=== PATIENT | male | born 1975 | race Caucasian/White ===

== ENCOUNTER 2018-04-28 21:47 | Outpatient (REF) | payer BC, SELFPAY ==
[2018-04-28 22:49] LABS: Anion Gap 8.6 mmol/L (3-11); BUN 12 mg/dL (7-18); CO2 27.4 mmol/L (21.0-32.0); CREATININE 0.62 mg/dL (0.70-1.30); Calcium 8.7 mg/dL (8.5-10.1); Chloride 105 mmol/L (98-107); Cholesterol 185 mg/dL (50-200); Glucose 94 mg/dL (70-100); HDL Cholesterol 62 mg/dL (40-60); LDL CHOLESTEROL 108 mg/dL (<100); Sodium 141 mmol/L (136-145); Triglyceride 43 mg/dL (30-150)
[2018-05-02 09:47] LABS: PSA, Screening 0.2 ng/ml (0-2.5)
== END 2018-04-28 22:07 ==
LOC: NCHCN 21:47
PROVIDERS: PCP Family Medicine; Visit Provider Specialist/Technologist Athletic Trainer
DX: Z12.5 Encounter for screening for malignant neoplasm of prostate (principal); Z00.00 Encounter for general adult medical examination without abnormal findings; Z13.220 Encounter for screening for lipoid disorders; Z13.228 Encounter for screening for other metabolic disorders
CPT/HCPCS: 80048; 80061; 83721; 84153

== ENCOUNTER 2019-06-09 07:02 | Outpatient (CLI) | payer BC, SELFPAY ==
[2019-06-09 08:29] LABS: Anion Gap 7.2 mmol/L (3-11); BUN 12 mg/dL (7-18); CO2 27.8 mmol/L (21.0-32.0); CREATININE 0.61 mg/dL (0.70-1.30); Calcium 8.7 mg/dL (8.5-10.1); Calculated LDL 124 mg/dL (<100); Chloride 107 mmol/L (98-107); Cholesterol 177 mg/dL (<200); Glucose 98 mg/dL (74-106); HDL Cholesterol 41 mg/dL (40-60); Potassium 4.3 mmol/L (3.5-5.1); Sodium 142 mmol/L (136-145); Triglyceride 60 mg/dL (<150)
== END 2019-06-09 07:22 ==
PROVIDERS: PCP Family Medicine; Visit Provider Nurse Practitioner Family
DX: Z00.00 Encounter for general adult medical examination without abnormal findings (principal); Z13.228 Encounter for screening for other metabolic disorders; Z13.220 Encounter for screening for lipoid disorders
CPT/HCPCS: 36415; 80048; 80061

== ENCOUNTER 2022-07-03 15:05 | Outpatient (REF) | payer BC, SELFPAY ==
[2022-07-03 15:43] LABS: ALT 55 U/L (16-63); AST 20 U/L (15-37); Albumin 3.7 g/dL (3.4-5.0); Alkaline Phosphatase 46 U/L (46-116); Anion Gap 5.9 mmol/L (3-11); BUN 13 mg/dL (7-18); Bilirubin, Total 0.2 mg/dL (0.2-1.0); CO2 30.1 mmol/L (21.0-32.0); CREATININE 0.6 mg/dL (0.70-1.30); Calcium 8.9 mg/dL (8.5-10.1); Calculated LDL 140 mg/dL (<100); Chloride 106 mmol/L (98-107); Cholesterol 229 mg/dL (<200); Estimated GFR 119.82 (mL/min/1.73m2); Glucose 108 mg/dL (74-106); HDL Cholesterol 64 mg/dL (40-60); Potassium 4.2 mmol/L (3.5-5.1); Sodium 142 mmol/L (136-145); Triglyceride 129 mg/dL (<150)
[2022-07-03 15:53] LABS: Hemoglobin A1C 5.3 % (<5.7)
[2022-07-03 23:16] LABS: PSA, Screening 0.3 ng/mL (<=2.5)
== END 2022-07-03 15:06 | disposition home or self-care (01) ==
LOC: NCHCN 15:05
PROVIDERS: PCP Family Medicine; Visit Provider Nurse Practitioner Family
DX: Z00.00 Encounter for general adult medical examination without abnormal findings (principal); E66.9 Obesity, unspecified; Z13.1 Encounter for screening for diabetes mellitus; Z13.220 Encounter for screening for lipoid disorders; Z12.5 Encounter for screening for malignant neoplasm of prostate
CPT/HCPCS: 80053; 80061; 84153; 83036

== ENCOUNTER 2022-07-17 08:05 | Day surgery (SDC) | payer BC, SELFPAY ==
--- NOTE | 2022-07-16 20:15 | PDOC.DSDIS_ITS ---
Date of service: 07/17/22 Time of Service: 10:00 Discharge Plan Disposition Patient Disposition: Home Condition: Good Discharge Details Reason For Visit: Colon scope/colon cancer screening Attending Provider: Anna Medellin Primary Care Provider: Rosalina Escamilla V Home Meds and New Rx's Prescriptions: Continued sildenafil (pulm.hypertension) 20 mg tablet 20 mg PO DAILY Rx Instructions: administer doses at least 4-6 hours apart Discontinued polyethylene glycol 3350 17 gram/dose powder 238 g PO ONCE Qty: 238 0RF Rx Instructions: take per colonoscopy instructions bisacodyl [Dulcolax (bisacodyl)] 5 mg tablet,delayed release (DR/EC) 5 mg PO ONCE Qty: 4 0RF Rx Instructions: take per colonoscopy instructions Discharge Instructions Additional Instructions: DSU Colonoscopy Post- Op Instructions Instructions for Everyone who is given Anesthesia: For your safety, please do the following for the next twenty-four (24) hours: *Do Not operate a motor vehicle (car, truck, motorcycle, etc.) *Do Not drink alcoholic beverages or use any recreational drugs for the first 24 hours or while taking pain medications. The medications in your body may have a reaction that can be dangerous. *Do Not make any important decisions or sign any important papers. Findings: Normal Follow up: repeat in 10 years time 1. No lifting over 20 pounds or strenuous activity for the first 24 hours after your procedure. After 24 hours there are no restrictions on your activity but you may feel fatigued for a few days. 2. After you arrive home you may have a light meal and return to your normal diet as you can tolerate it without feeling sick to your stomach. 3. You may have a bloated, gaseous feeling in your belly (abdomen) after a colonoscopy. Passing gas and belching will help. Walking or lying down on your left side with your knees flexed may relieve the discomfort. Call the office at [phone] (Office) or [phone] (Hospital) right away if you notice any of the following: a.Vomiting of blood or ?coffee ground stools?. b.Rectal bleeding 1Tbsp, blood clots or continuous bleeding. c.Severe belly (abdominal) pain. d.A hard distended belly (abdomen) and an inability to pass gas. 4. Please don?t expect to have a normal BM (bowel movement) for 2-3 days after your procedure. 5. If there are questions regarding the findings of your procedure, please contact your doctor 6. If you are unable to contact your doctor with a problem, contact the hospital at [phone]. 7. Continue all your regular medications unless directed otherwise. I understand the above instructions and have no questions. Signature of Patient or Adult Escort Name of Responsible Adult Escort Signature of Nurse Date/Time Activity:: See above Diet:: See above Discharge Orders Discharge Orders: Discharge Order (Routine); Ordered 07/17/22 Ordered By: Anna Medellin
[2022-07-17 08:15] VITALS: BP 122/82; PULSE 71; RESP 18; TEMP 36.5; O2SAT 98
[2022-07-17] MEDS: Lactated Ringers 1,000 ML 80 ML IV (08:39)
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
[2022-07-17 09:02] VITALS: BMI 36.6
[2022-07-17 10:00] VITALS: BP 111/77; PULSE 71; RESP 18; TEMP 36.2; O2SAT 97
--- NOTE | 2022-07-17 10:01 | W.COLOREPORT ---
Date of service: 07/17/22 Time of Service: 10:01 Colonoscopy Report Date of procedure: 07/17/22 Pre-op diagnosis general: CRC screening Post-op diagnosis procedure note: same Surgeon: Anna Medellin Anesthesia Type: General:No Airway Estimated blood loss (mL): 13 Pathology: none sent Complications: None Disposition: same day Prep: Miralax/Dulcolax Retraction Time: 14 Procedure Description: After informed consent was obtained the patient was taken to the procedure room and placed in a left decubitous position. Monitors were applied and a time out was done. The patients name, date of , procedure, allergies to medications and metal in their body was reviewed. The patient was then sedated. Once sedated and comfortable a rectal exam was done. External exam was normal. Internal exam revealed a normal sphincter tone and no palpable masses. The scope was then introduced and retrofelexed. No without internal hemorrhoids were identified. The scope was then advanced to the cecum difficulty. The TI and appendiceal orifice were identified. The prep was BBPS 2 in all segments for total of 6. The scope was then slowly retracted over 14 minutes back into the rectum. No polyps, AVMs, diverticula are visualized. The mucosa is pink and healthy with a normal vascular pattern. the scope was removed and the patient was woken up and taken back to Same day surgery in stable condition. The patient tolerated the procedure well and there were no immediate complications. Follow up: The patient should follow up in 10 years unless they develop changes in bowel habits or other new gastrointestinal complaints.
[2022-07-17 10:28] VITALS: BP 126/92; PULSE 76; RESP 18; TEMP 36.5; O2SAT 98
--- NOTE | 2022-07-17 10:58 | W.ANESPOSTOP ---
Postoperative Evaluation Date, Time and Location Date Performed: 07/17/22 Time Performed: 10:30 Patient Location: Day Surgery Unit Vital Signs Most Recent Imported Vital Signs: Most Recent Vital Signs Temp Pulse Resp BP Pulse Ox 36.5 C 76 18 126/92 H 98 07/17/22 10:28 07/17/22 10:28 07/17/22 10:28 07/17/22 10:28 07/17/22 10:28 Pain Score Most Recent Pain Score: Most Recent Pain Score Pain Level 0 07/17/22 10:28 Assessment Mental Status: Awake (Alert & Oriented to Patient Baseline) Airway and Respiratory Function: Patent airway with normal (patient baseline) respiratory exam Cardiovascular Function: Hemodynamically Stable Hydration Status: Adequately Hydrated Nausea & Vomiting: No Nausea or Vomiting Pain: Pt. Denies Any Pain Peripheral Nerve Block: Patient did not receive a nerve block
== END 2022-07-17 10:44 | disposition home or self-care (01) ==
PROVIDERS: PCP Family Medicine; Visit Provider Surgery
PROC: 0DJD8ZZ Inspection of Lower Intestinal Tract, Via Natural or Artificial Opening Endoscopic (ICD-10-PCS; CPT 45378; principal; 2022-07-17 09:00)
DX: Z12.11 Encounter for screening for malignant neoplasm of colon (principal)
CPT/HCPCS: 45378

== ENCOUNTER 2022-10-16 11:47 | Outpatient (CLI) | payer BC, SELFPAY ==
--- NOTE | 2022-10-16 08:15 | DI.RAD_ITS ---
Exam(s) XR WRIST LT COMPLETE EXAM: XR WRIST LT COMPLETE CLINICAL HISTORY: left wrist pain. TECHNIQUE: 2D digital imaging was performed. COMPARISON: No exams were available for comparison FINDINGS: Four views. No evidence of acute fracture nor dislocation. Scapholunate distance normal. Developmental notch no christophe on the lateral aspect scaphoid. No obvious scaphoid fracture. Moderate degenerative changes not ed in the 1st carpometacarpal joint. IMPRESSION: No acute fractures evident. DATA REPOSITORY: RADIATION DOSE DELIVERED:
== END 2022-10-16 11:48 | disposition home or self-care (01) ==
LOC: DIORS 11:48
PROVIDERS: PCP Family Medicine; Visit Provider Student in an Organized Health Care Education/Training Program
DX: M25.532 Pain in left wrist (principal)
CPT/HCPCS: 73110

== ENCOUNTER 2023-01-25 08:07 | Emergency (ER) | payer BC, SELFPAY ==
[2023-01-25 08:10] VITALS: BP 160/93; PULSE 69; RESP 18; TEMP 36.7; O2SAT 99
[2023-01-25 08:20] VITALS: BP 160/93; PULSE 69; RESP 18; TEMP 36.7; O2SAT 99
--- NOTE | 2023-01-25 09:07 | DI.RAD_ITS ---
Exam(s) XR HAND RT COMPLETE EXAM: XR HAND RT COMPLETE CLINICAL HISTORY: pain 5th 5cp. TECHNIQUE: 2D digital imaging was performed. COMPARISON: No exams were available for comparison FINDINGS: 3 views No evidence of acute fracture or dislocation. No radiopaque foreign body. No osseous lesions. Bone density normal. IMPRESSION: No acute osseous findings. DATA REPOSITORY: RADIATION DOSE DELIVERED:
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
[2023-01-25 10:57] VITALS: BP 149/93; PULSE 77; RESP 18; O2SAT 100
[2023-01-25] MEDS: Cephalexin 500 MG CAP PO (10:57)
== END 2023-01-25 10:57 | disposition home or self-care (01) ==
PROVIDERS: Emergency Provider Student in an Organized Health Care Education/Training Program; PCP Family Medicine
DX: M79.641 Pain in right hand (principal); F17.210 Nicotine dependence, cigarettes, uncomplicated
CPT/HCPCS: 99283; 73130

== ENCOUNTER 2023-04-02 10:21 | Day surgery (SDC) | payer BC, SELFPAY ==
--- NOTE | 2023-04-02 08:55 | W.PM.DSUDISC ---
Date of service: 04/02/23 Time of Service: 08:57 Discharge Plan Disposition Patient Disposition: Home Condition: Good Discharge Details Reason For Visit: Right carpal tunnel syndrome Attending Provider: Robles Leal Primary Care Provider: Rosalina Escamilla V Home Meds and New Rx's Prescriptions: New acetaminophen 500 mg tablet 500 mg PO Q6H PRN (Reason: pain) Qty: 60 2RF hydrocodone-acetaminophen 5-325 mg tablet 1 tab PO Q6H PRN (Reason: severe pain) Qty: 4 0RF Rx Instructions: Take one tablet up to every 6 hours as needed for severe postoperative pain ibuprofen 600 mg tablet 600 mg PO TID PRN (Reason: pain) Qty: 60 0RF Continued sildenafil (pulm.hypertension) 20 mg tablet 20 mg PO DAILY Rx Instructions: administer doses at least 4-6 hours apart Discharge Instructions Stand Alone Forms: Mel Martinez Tunnel Release Activity:: Elevate Remove Dressings/Wound Care:: 48 hours Shower/Bathe:: 48 hours Diet:: As Tolerated Discharge Orders Discharge Orders: Discharge Order (Routine); Ordered 04/02/23 Ordered By: Anna Hargrove
[2023-04-02 10:38] VITALS: BP 135/90; PULSE 71; RESP 16; TEMP 36.4; O2SAT 97
[2023-04-02] MEDS: Lactated Ringers 1,000 ML 80 ML IV (11:05)
[2023-04-02 12:03] VITALS: BMI 39.6
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
[2023-04-02] MEDS: Lidocaine 1% Multi-Dose W/EPI 1/100,000 50 ML VIAL (12:32)
[2023-04-02] MEDS: methylPREDNISolone ACETATE 80 MG/ML VIAL (12:41)
[2023-04-02] MEDS: Bupivacaine 0.25% Pres-Free 10 ML VIAL (12:41)
--- NOTE | 2023-04-02 12:53 | ROE_ITS ---
Date of service: 04/02/23 Time of Service: 12:30 Operative Note Operative Note DATE OF PROCEDURE: 04/02/23 PRE-OP DIAGNOSIS: Right Carpal Tunnel Syndrome Left Thumb CMC Arthritis POST-OP DIAGNOSIS: same PROCEDURE: Right Endoscopic Carpal Tunnel Release Left Thumb CMC Injection SURGEON: Robles Leal ANESTHESIA TYPE: General:No Airway Refer to Anesthesia Record ESTIMATED BLOOD LOSS: 0 PATHOLOGY: none sent TOURNIQUET TIME: 5 COMPLICATIONS: None Patient was transported to: same day Patient's condition: stable Indications: I have seen Ed in clinic for symptoms of carpal tunnel syndrome. The numbness, tingling, and pain limited function. Clinical exam findings with nerve conduction tests confirmed the diagnosis of carpal tunnel syndrome. Nonoperative measures such as bracing, time, activity modifications had been tried but disability and pain persisted. I discussed carpal tunnel release with the patient. I reviewed the risks of the procedure to include, but not limited to, bleeding, infection, pain, stiffness, incomplete release, damage to nerves or vessels, persistent numbness, recurrence. Despite these risks, the patient elected to proceed. He also has had persistent pain about his left thumb CMC joint. He had an injection in the office which was initially assessable most recent was difficult and performing and he did not have great results. Therefore, I offered repeat injection of the left thumb CMC joint today. Findings: There was tightened carpal tunnel. This was dilated and released successfully with the endoscopic with increased space within the tunnel. The antebrachial fascia was released proximally freeing the median nerve at the wrist. Procedure Description: Ed was greeted in the preoperative holding area where the correct side was identified and marked. The consent was reviewed with the patient and signed. The history and physical was updated. All questions were answered. He was taken back to the operating room. The patient was placed into the supine position on the operating room table with the right arm on an arm board. A nonsterile tourniquet was placed high onto the arm. All bony prominences were well padded. Prophylactic antibiotics in the form of Cefazolin were administered. The right arm was then prepped with Chloraprep and draped in a standard fashion with stockinette and extremity drape. A timeout to confirm correct identity, side and site, procedure, allergies, anesthesia, and medical concerns was performed. The surgical site was marked in the volar wrist creases in line with the radial border of the fourth ray. This area was anesthetized with approximately 6cc of 1% Lidocaine. The limb was then exsanguinated with an Esmarch. The skin was incised with a 15 blade, approximately 1cm. The skin only was cut and the deeper tissue was dissected bluntly with a tenotomy scissor, avoiding passing nerve and venous structures. The fascia was penetrated and opened bluntly. A two-prong skin hook was placed under this proximal fascial edge. A series of hamate finders were used to identify and dilate the carpal tunnel. Synovial elevator was used to free synovial attachments to the underside of the transverse carpal ligament. My thumb was kept in the palm to arlene the distal extent of the carpal tunnel and correctly position the hand. The Microaire endoscope was inserted without difficulty and without resistance. Excellent vis ualization showed horizontally running fibers of the transverse carpal ligament (TCL). The distal extent of the TCL was visualized and the end of the scope palpated with the thumb. The blade was elevated and withdrawn from distal to proximal. The TCL was split into two flaps. The endoscope was reinserted to confirm complete release and any remnant ligament was incised. The scope was withdrawn and the proximal aspect of the carpal tunnel was grossly inspected and appeared release with the median nerve visible. The antebrachial fascia at the level of the wrist was then freed from the overlying skin and then the underlying median nerve with blunt dissection. This was transected longitudinally for about 3cm proximal to the wrist incision. The wound was then irrigated with easy flow of irrigant distally and proximally. The incision was closed with a single 4-0 Nylon suture. The wound was dressed with Xeroform, Gauze, Kerlix and Addison. The tourniquet was deflated with the initial dressing and held with some pressure. Blood flow returned easily to all digits with capillary refill less than 2 seconds. I then performed the injection of the left thumb CMC joint. At the radial border of the thumb CMC joint was prepped with alcohol. Using a 22-gauge needle I then was able to penetrate CMC joint. There was some resistance on entering the joint surrounding bone spurs although the injectable flowed easily. I injected 1 cc of 0.5% Vivacaine along with 40 mg of Depo-Medrol. A Band-Aid was applied. The patient tolerated the procedure well and was returned to the Same Day Surgery area in a stable condition suffering no known complication.
[2023-04-02 12:56] VITALS: BP 122/72; PULSE 79; RESP 16; TEMP 36.5; O2SAT 98
[2023-04-02 13:24] VITALS: BP 119/79; PULSE 71; RESP 18; TEMP 36.7; O2SAT 97
--- NOTE | 2023-04-02 13:49 | W.ANESPOSTOP ---
Postoperative Evaluation Date, Time and Location Date Performed: 04/02/23 Time Performed: 13:50 Patient Location: Day Surgery Unit Vital Signs Most Recent Imported Vital Signs: Most Recent Vital Signs Temp Pulse Resp BP Pulse Ox 36.7 C 71 18 119/79 97 04/02/23 13:24 04/02/23 13:24 04/02/23 13:24 04/02/23 13:24 04/02/23 13:24 Pain Score Most Recent Pain Score: Most Recent Pain Score Pain Level 2 04/02/23 13:24 Assessment Mental Status: Awake (Alert & Oriented to Patient Baseline) Airway and Respiratory Function: Patent airway with normal (patient baseline) respiratory exam Cardiovascular Function: Hemodynamically Stable Hydration Status: Adequately Hydrated Nausea & Vomiting: No Nausea or Vomiting Pain: Pt. Denies Any Pain Peripheral Nerve Block: Patient did not receive a nerve block
== END 2023-04-02 10:22 | disposition home or self-care (01) ==
LOC: SUR 10:21
PROVIDERS: PCP Family Medicine; Visit Provider Student in an Organized Health Care Education/Training Program
PROC: 01N54ZZ Release Median Nerve, Percutaneous Endoscopic Approach (ICD-10-PCS; CPT 29848; principal; 2023-04-02 12:00)
PROC: (CPT 29848; 2023-04-02 12:00)
DX: G56.01 Carpal tunnel syndrome, right upper limb (principal); M18.12 Unilateral primary osteoarthritis of first carpometacarpal joint, left hand
CPT/HCPCS: 29848; 20600; J1040; J1885; J2704

== ENCOUNTER 2024-01-21 08:36 | Emergency (ER) | payer BC, SELFPAY ==
[2024-01-21] VITALS (38 sets, daily range): BP systolic 142; BP diastolic 84; PULSE 73–74; RESP 13–25; TEMP 36.7; O2SAT 95–98
--- NOTE | 2024-01-21 08:30 | RT.EKG_ITS ---
APPROVED REPORT Exam: Resting ECG Reason for Exam: Dizziness Patient Location: E HR:69 bpm ECG Measurements Heart Rate 69 AXIS VT 167 P 39 QRSd 102 QRS 14 QT 376 T 38 QTc 403 Conclusion Sinus rhythm...normal P axis, V-rate 60- 99 I have reviewed and interpreted ECG and agree with software generated interpretation.
--- NOTE | 2024-01-21 08:45 | DI.RAD_ITS ---
Exam(s) XR CHEST 2V PA LATERAL EXAM: XR CHEST 2V PA LATERAL CLINICAL HISTORY: weakness TECHNIQUE: 2D digital imaging was performed of the chest. Two images were obtained. PA and lateral views were obtained. COMPARISON: CR CHEST 2 VIEWS PA,LAT from 05/25/2014 FINDINGS: MEDIASTINUM: Normal. HEART: Normal. PULMONARY VASCULATURE: Normal. LUNGS: Clear. PLEURAL SPACE: No pleural effusion or pneumothorax. BONE:Within normal limits for the patient's age. OTHER FINDINGS:Normal. IMPRESSION: No acute pulmonary findings. DATA REPOSITORY: RADIATION DOSE DELIVERED:
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
[2024-01-21 09:07] LABS: Abs Immature Grans 0.02 10^3/uL (0.0-0.06); Absolute Basophil Count 0.01 10^3/uL (0.0-0.2); Absolute Eosinophil Count 0.13 10^3/uL (0.0-0.7); Absolute Lymphocyte Count 1.87 10^3/uL (1.2-3.4); Absolute Monocyte Count 0.55 10^3/uL (0.1-0.8); Absolute Neutrophil Count 4.63 10^3/uL (1.2-6.7); Basophils % 0.1 %; Eosinophils % 1.8 %; HCT 43.9 % (40.0-50.0); HGB 15.1 g/dL (13.5-17.5); Immature Grans % 0.3 %; Lymphocytes % 25.9 %; MCHC 34.4 % (32.0-36.0); MCV 90 fL (80-95); MPV 8.6 fL (8.0-11.0); Monocytes % 7.6 %; Neutrophils % 64.3 %; Platelet Count 216 10^3/uL (130-400); RBC 4.87 10^6/uL (4.36-5.78); RDW 12.1 % (11.8-14.1); RDW-SD 39.7 fL; WBC 7.21 10^3/uL (4.4-10.8)
[2024-01-21 09:29] LABS: ALT 43 U/L (16-63); AST 25 U/L (15-37); Albumin 3.9 g/dL (3.4-5.0); Alkaline Phosphatase 59 U/L (46-116); Anion Gap 7.9 mmol/L (3-11); BUN 13 mg/dL (7-18); Bilirubin, Total 0.38 mg/dL (0.2-1.0); CO2 28.1 mmol/L (21.0-32.0); CREATININE 0.6 mg/dL (0.70-1.30); Calcium 8.9 mg/dL (8.5-10.1); Chloride 106 mmol/L (98-107); Estimated GFR 118.34 (mL/min/1.73m2); Glucose 98 mg/dL (74-106); Magnesium 2.3 mg/dL (1.8-2.4); Potassium 4.5 mmol/L (3.5-5.1); Sodium 142 mmol/L (136-145); TSH 1.92 uIU/mL (0.36-3.74); Total Protein 7.6 g/dL (6.4-8.2); Troponin I 5 ng/L (<or=76)
[2024-01-21 09:34] LABS: Bilirubin Negative (Negative); Blood Negative (Negative); Clarity Clear (Clear); Glucose Negative (Negative); Ketones Negative (Negative); Leukocyte Esterase Negative (Negative); Nitrite Negative (Negative); Specific Gravity 1.015 (1.005-1.025); Urobilinogen 0.2 mg/dL (Up to 0.2)
[2024-01-21 10:21] LABS: Troponin I < 4 ng/L (<or=76)
== END 2024-01-21 10:43 | disposition home or self-care (01) ==
PROVIDERS: Emergency Provider Physician Assistant; PCP Family Medicine
DX: R55 Syncope and collapse (principal)
CPT/HCPCS: 36415; 36416; 80053; 82962; 93005; 99285; 71046; 81003; 83735; 84443; 84484; 85025; 93010; 99284

== ENCOUNTER 2024-03-15 11:21 | Day surgery (SDC) | payer BC, SELFPAY ==
--- NOTE | 2024-03-15 09:46 | W.PM.DSUDISC ---
Date of service: 03/15/24 Discharge Plan Disposition Patient Disposition: Home Condition: Good Discharge Details Reason For Visit: CMC arthroplasty L thumb Attending Provider: Robles Leal Primary Care Provider: Mónica Muller Home Meds and New Rx's Prescriptions: New acetaminophen 500 mg tablet 1,000 mg PO TID Qty: 90 3RF ibuprofen 600 mg tablet 600 mg PO TID PRNQty: 90 3RF oxycodone 5 mg tablet 5 mg PO Q4H MDD 6 tabs PRN (Reason: pain) Qty: 20 0RF Continued sildenafil (pulm.hypertension) 20 mg tablet 20 mg PO DAILY Rx Instructions: administer doses at least 4-6 hours apart Discontinued acetaminophen 500 mg tablet 500 mg PO Q6H PRN (Reason: pain) Qty: 60 2RF ibuprofen 600 mg tablet 600 mg PO TID PRN (Reason: pain) Qty: 60 0RF Discharge Instructions Additional Instructions: Thumb CMC Discharge Instructions Activity: You should keep the hand/thumb elevated as much as possible for the first few days. You may use the other fingers as tolerated but avoid trying to do too much too soon. You may perform light activities with the splint in place. Dressing/Cast: Your splint should stay in place at all times. Do NOT get it wet. You may loosen the FRANK wrap if you feel it is too tight and then rewrap more loosely. Medications: - You should take Tylenol and [Ibuprofen] for baseline pain control. - You have [Oxycodone] for breakthrough pain. - You may apply ice over the thumb. Follow-up: 10-14 days Referrals: Robles Leal MD [ [facility] STAFF PHYSICIAN] - Equipment/Supplies: Splint Activity:: Elevate Remove Dressings/Wound Care:: Do Not Remove Shower/Bathe:: Cover Diet:: As Tolerated Discharge Orders Discharge Orders: Discharge Order (Routine); Ordered 03/15/24 Ordered By: Pablito Herrera DS: Diagnosis Discharge Diagnosis (1) Arthritis of carpometacarpal (CMC) joint of left thumb: Status: Acute
[2024-03-15 11:30] VITALS: BP 138/80; PULSE 68; RESP 18; TEMP 37; O2SAT 97
[2024-03-15] MEDS: Celecoxib 200 MG CAP 400 MG PO (12:17)
[2024-03-15] MEDS: Acetaminophen 500 MG TAB 1000 MG PO (12:17)
[2024-03-15] MEDS: Normal Saline 500 ML 30 ML IV (12:17)
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
[2024-03-15] MEDS: ceFAZolin 3,000 MG in Normal Saline 100 ML 200 MG IV (13:13)
[2024-03-15 13:21] VITALS: BMI 40.5
[2024-03-15] MEDS: Bupivacaine 0.25% Pres-Free 30 ML VIAL (14:30)
--- NOTE | 2024-03-15 14:40 | ROE_ITS ---
Operative Note Operative Note PRE-OP DIAGNOSIS: Left Thumb CMC Arthritis POST-OP DIAGNOSIS: same PROCEDURE: Left trapezial resection arthroplasty with suture suspensionplasty SURGEON: Robles Leal ANESTHESIA TYPE: General LMA/ETT Refer to Anesthesia Record ESTIMATED BLOOD LOSS: 20 PATHOLOGY: none sent TOURNIQUET TIME: 60 COMPLICATIONS: None Patient was transported to: PACU Patient's condition: stable Indications: Ed is a 48 year old male who has had symptoms of thumb CMC arthritis with pain and decreased mobility. Nonoperative treatment options had been trialed. Given their failure, I offered operative intervention. I reviewed the technical details. I reviewed the risk of the procedure to include bleeding, infection, pain, stiffness, instability, subsidence, damage to neighboring arteries, damage to the superficial radial nerve, and weakness. Despite these risks, the patient elected to proceed. Findings: There is notable arthrosis between the trapezium and the first metacarpal. Procedure Description: Ed was greeted in the preoperative holding area. Name and surgical site were confirmed. The history and physical was completed. The consent was reviewed the patient and signed. He was taken back to the operating room. The patient was placed and monitored anesthesia care. The left was then prepped with ChloraPrep and draped in a standard fashion after a nonsterile tourniquet was placed high up onto the arm. Prophylactic antibiotics in the form of cefazolin were administered. A timeout was performed for safe surgery. The surgical site was drawn on the skin overlying the dorsal radial border of the wrist. The planned surgical field was anesthetized with 0.25% bupivacaine with epinephrine. The limb was exsanguinated and the tourniquet was inflated where it stayed for 60 minutes. A 3 cm incision was made longitudinally over the radial wrist from the level of the radial styloid to just past the base of the first metacarpal. The skin was incised only. The deep tissue and subcutaneous fat was dissected with a tenotomy scissors trying to protect branc hes of the superficial radial nerve. Any branches that were identified were retracted out of the way. The first compartment extensor tendons were then identified and released. The interval between APL and EPB was identified. The base of the first metacarpal was palpated. There was significant mount of fat and inflammatory tissue seen in this region which was challenging to dissect away from the underlying capsule. Once the capsule was better identified, a needle was placed into the joint between the first metacarpal and the trapezium. A single x-ray was used to confirm appropriate positioning. The capsule of the trapezium was then incised. The radial border of the bone was identified. Soft tissues around trapezium were dissected bluntly to allow relaxation of vital arterial structures traversing the trapezium. Using a Colquitt blade the capsule was elevated off the trapezium in a subperiosteal fashion. Once it appeared to have all the capsular attachments released, the trapezium was then removed using a rongeur. Given the size the trapezium I used an osteotome to split the trapezium into smaller sections and continue with removal with a rongeur. The wound was inspected to make sure all portions of the trapezium were removed. The wound was then thoroughly irrigated. Using a 2-0 FiberWire then performed a suture suspensionplasty. This was done by incorporating capsule and attachments of the APL at the base of the first metacarpal and creating a sling connected to the deep flexor carpi radialis tendon seen traversing deep within the wound towards the second metacarpal. This was done twice to create a crossing network of 2-0 suture. This was then tied overlying the base of the first metacarpal making sure not to over tighten and hourglass the tendons. This provided support to the first metacarpal to prevent any excessive subsidence. The tourniquet was then released. There is no significant bleeding. The capsule of the trapezium was then reapproximated with a 2-0 Vicryl. The skin was closed with subcuticular 4-0 Monocryl, reinforced with skin glue. The hand was dressed with 4 x 4's, Kerlex and FRANK to create a soft, thumb spica splint. All counts were correct. Patient was transferred back to PACU in a stable condition. Date of Procedure: 03/15/24
[2024-03-15 14:45] VITALS: BP 164/76; PULSE 78; RESP 16; TEMP 35.7; O2SAT 96
[2024-03-15] MEDS: oxyCODONE 5 MG TAB PO ×2 (14:50→15:42)
--- NOTE | 2024-03-15 14:50 | DI.RAD_ITS ---
Exam(s) XR HAND LT LIMITED EXAM: XR HAND LT LIMITED CLINICAL HISTORY: Arthritis of carpometacarpal (CMC) joint of left. TECHNIQUE: 2D and realtime digital imaging was performed. COMPARISON: CR XR HAND RT COMPLETE from 01/25/2023 FINDINGS: Please see procedure note for details. Fluoro time: 2 seconds RADIATION DOSE DELIVERED: marianne Doshi=0.0073 mGy
--- NOTE | 2024-03-15 15:01 | W.ANESPOSTOP ---
Postoperative Evaluation Date, Time and Location Date Performed: 03/15/24 Time Performed: 15:25 Patient Location: Day Surgery Unit Vital Signs Most Recent Imported Vital Signs: Most Recent Vital Signs Temp Pulse Resp BP Pulse Ox 35.7 C L 78 16 164/76 H 96 03/15/24 14:45 03/15/24 14:45 03/15/24 14:45 03/15/24 14:45 03/15/24 14:45 Pain Score Most Recent Pain Score: Most Recent Pain Score Pain Level 9 03/15/24 14:45 Assessment Mental Status: Awake (Alert & Oriented to Patient Baseline) Airway and Respiratory Function: Patent airway with normal (patient baseline) respiratory exam Cardiovascular Function: Hemodynamically Stable Hydration Status: Adequately Hydrated Nausea & Vomiting: No Nausea or Vomiting Pain: Pain is tolerable per patient Peripheral Nerve Block: Patient did not receive a nerve block
[2024-03-15 15:21] VITALS: BP 126/74; PULSE 62; RESP 16; TEMP 36.3; O2SAT 97
[2024-03-15] MEDS: Ketorolac 15 MG/ML VIAL IVP (15:35)
[2024-03-15] MEDS: Normal Saline Flush 10 ML SYR IV (15:35)
== END 2024-03-15 16:15 | disposition home or self-care (01) ==
LOC: SUR 11:21
PROVIDERS: PCP Nurse Practitioner Family; Visit Provider Student in an Organized Health Care Education/Training Program
PROC: (CPT 25447; principal; 2024-03-15 14:30)
DX: M18.12 Unilateral primary osteoarthritis of first carpometacarpal joint, left hand (principal); E66.9 Obesity, unspecified; F17.210 Nicotine dependence, cigarettes, uncomplicated; Z68.41 Body mass index [BMI] 40.0-44.9, adult
CPT/HCPCS: 25447; 76000; 73120; J0665; J0690; J1100; J1885; J2003; J2250; J2405; J2704; J3010